=== PATIENT | male | born 1960 | race African-American/Black ===

== ENCOUNTER 2018-03-12 12:30 | Emergency (ER) | payer MEDICAID ==
[~2018-03-12] VITALS: Ht 180.3 cm; Wt 86.0 kg
[2018-03-12 14:48] LABS: BASOPHILS % 0.4 % (0.0-2.0); EOSINOPHILS % 2.2 % (0.0-5.0); HEMATOCRIT. 37.2 % (42.0-52.0); HEMOGLOBIN. 12.4 g/dL (14.0-18.0); LYMPHOCYTES % 13.2 % (20.0-50.0); MEAN CORPUSCULAR HEMOGLOBIN 24.3 pg (28.0-32.0); MEAN PLATELET VOLUME 9.1 fl (7.4-10.4); MONOCYTES % 13.9 % (2.0-8.0); NEUTROPHILS % 70.3 % (40.0-76.0); PLATELET 181 x1000/uL (130-400); RED BLOOD CELL COUNT 5.09 mill/uL (4.7-6.1); RED CELL DISTRIBUTION WIDTH 14.7 % (11.6-14.6)
[2018-03-12 14:50] LABS: CHLORIDE 109 mEq/L (98-107)
[2018-03-12 14:57] LABS: ETHANOL BLOOD < 10 mg/dL
[2018-03-12 15:16] VITALS: BP 112/75
== END 2018-03-12 16:52 | disposition home or self-care (01) ==
LOC: ER 12:30
DX: F14.10 Cocaine abuse, uncomplicated (principal); F20.9 Schizophrenia, unspecified; Z88.2 Allergy status to sulfonamides
CPT/HCPCS: 36415; 80053; 82962; 85025; 99284; G0482; J7030; Z7610

== ENCOUNTER 2022-01-23 02:15 | Emergency (ER) | payer MEDICAID ==
[~2022-01-23] VITALS: Ht 180.3 cm; Wt 90.0 kg
[2022-01-23 02:30] VITALS: BP 125/79
== END 2022-01-23 04:36 ==
LOC: ER 02:15
DX: M79.642 Pain in left hand (principal); M54.2 Cervicalgia; M47.892 Other spondylosis, cervical region; F14.10 Cocaine abuse, uncomplicated; F17.210 Nicotine dependence, cigarettes, uncomplicated; Z88.2 Allergy status to sulfonamides; V43.52XA Car driver injured in collision with other type car in traffic accident, initial encounter; Y93.89 Activity, other specified; Y92.488 Other paved roadways as the place of occurrence of the external cause
CPT/HCPCS: 71045; 72170; 73130; 74176; 99284